=== PATIENT | female | born 1965 | race Two or more races ===

== ENCOUNTER 2024-09-26 10:56 | Emergency (ER) | payer OTHER ==
[~2024-09-26] VITALS: Ht 162.6 cm; Wt 79.4 kg
[2024-09-26] MEDS ORDERED: CRESTOR40 MG (12:08)
[2024-09-26] MEDS ORDERED: PRILOSEC OTC20 MG (12:08)
[2024-09-26] MEDS ORDERED: AMLODIPINE-OLM1 EAC2 (12:08)
[2024-09-26] MEDS ORDERED: PEPCID20 MG (12:08)
[2024-09-26] MEDS ORDERED: COZAAR25 MG (12:08)
[2024-09-26] MEDS ORDERED: TROKENDI XR25 MG (12:09)
[2024-09-26] MEDS ORDERED: FAMOtidine 10 MG/ML (4ML VIAL) IV ONE (13:45)
[2024-09-26 14:05] LABS: BASO % 0.2 % (0.1-1.2); EOS # 0.06 (0.04-0.54); EOS % 0.3 % (0.7-7.0); HEMATOCRIT 42.5 % (34.1-44.9); HEMOGLOBIN 14.5 g/dL (11.2-15.7); LYMPH # 4.21 (1.18-3.74); LYMPH % 23.1 % (19.3-53.1); MEAN CORPUSCULAR HEMOGLOBIN 31.3 pg (25.6-32.2); MONO # 0.79 (0.24-0.82); MONO % 4.3 % (4.7-12.5); NEUT % 71.1 % (34.0-71.1); PLATELET COUNT 307 K/uL (163-369); RED BLOOD COUNT 4.63 M/uL (3.93-5.22); RED CELL DISTRIBUTION WIDTH 13.7 % (11.6-14.4)
[2024-09-26 14:28] LABS: PH,URINE 5.5 (5.0-8.0); URINE APPEARANCE Clear; URINE BILIRRUBIN Negative (NEGATIVE); URINE BLOOD Small; URINE COLOR Yellow; URINE GLUCOSE Negative (NEGATIVE); URINE KETONE Negative (NEGATIVE); URINE LEUKOCYTE Negative; URINE NITRATE Negative; URINE PROTEIN Negative (NEGATIVE); URINE UROBILINOGEN 0.2 E.U./dl
[2024-09-26 14:31] LABS: URINE BACTERIA 13.4 uL (0.0-1933); URINE EPITHELIAL CELLS 7.1 uL (0.0-38.8); URINE RBC 16.4 uL (0.0-20.8)
[2024-09-26 17:37] LABS: ALBUMIN 3.8 gm/dL (3.4-5.0); BILIRUBIN TOTAL 0.36 mg/dL (0.3-1.2); CALCIUM 9.2 mg/dL (8.5-10.1); CREATININE SERUM 0.86 mg/dL (0.55-1.02); GFR 67.08; GLOBULINA 3.6 G/DL (2.4-3.5); POTASSIUM 3.44 mEq/L (3.5-5.1); TOTAL PROTEIN 7.4 gm/dL (6.4-8.2)
== END 2024-09-26 22:37 | disposition home or self-care (01) ==
LOC: ER 11:16
PROVIDERS: General Practice
DX: M54.2 Cervicalgia (principal); M79.7 Fibromyalgia; Z88.8 Allergy status to other drugs, medicaments and biological substances; Z87.09 Personal history of other diseases of the respiratory system; I10 Essential (primary) hypertension; E03.9 Hypothyroidism, unspecified; M51.369 Other intervertebral disc degeneration, lumbar region without mention of lumbar back pain or lower extremity pain
CPT/HCPCS: 36415; 70490; 96365; 99283; J3490